=== PATIENT | female | born 1970 | race Caucasian/White ===

== ENCOUNTER 2024-01-10 08:01 | Emergency (ER) | payer BC, SELFPAY ==
--- NOTE | ~2024-01-10 | CT_ITS ---
EXAMINATION: CT ABDOMEN AND PELVIS WITHOUT CONTRAST CLINICAL INFORMATION: Right flank pain COMPARISON: None available. TECHNIQUE: Multidetector volumetric imaging was performed from the superior aspect of the liver through the pubic symphysis. Sagittal and coronal reformatted images were obtained on the technologist's workstation. This CT examination was performed using dose optimization techniques as appropriate, variously including the following: *Automated exposure control *Adjustment of mA and/or kV according to patient size (this includes techniques or standardized protocols for targeted exams where dose is matched to indication/reason for exam; i.e. extremities or head) *Use of iterative reconstruction technique DLP: 719 mGy-cm FINDINGS: LUNG BASES: There is minimal atelectatic changes right middle lobe. The heart size is normal. LIVER, GALLBLADDER, AND BILIARY TREE: The liver is normal in size, shape, and attenuation. No focal hepatic lesion or biliary ductal dilatation is present. The gallbladder is unremarkable with no evidence of radiopaque gallstones, gallbladder wall thickening, or obvious pericholecystic inflammatory changes. PANCREAS: Unremarkable. SPLEEN: Unremarkable. ADRENAL GLANDS: Unremarkable. KIDNEYS AND URETERS: The kidneys are normal in size, shape, and attenuation. No hydronephrosis, hydroureter, or calculi seen. No perinephric stranding. BLADDER: There is a 2 mm dependent radiopaque calculi likely from recently passed kidney stone. GASTROINTESTINAL TRACT: There is scattered stool, diverticuli and gas seen throughout the colon without significant distention. The small bowel loops are normal caliber. Appendix is normal caliber. There is no free air or free fluid. ABDOMINAL WALL: No significant hernia is appreciated. LYMPH NODES: Normal. VASCULAR: Unremarkable. PELVIC VISCERA: The uterus is retroverted and appears unremarkable. There is no adnexal mass or free fluid. OSSEOUS STRUCTURES: Mild degenerative disc changes with vacuum disc phenomena and spondylosis is noted at the L5-S1 disc level. CT/CT abdomen pelvis wo IV con IMPRESSION: 1. 2 mm dependent radiopaque calculi in the urinary bladder likely from recently passed kidney stone. There is no hydroureteronephrosis. No renal calculi seen 2. Scattered colonic diverticulosis without diverticulitis. Mild constipation. Fleischner guidelines were followed.
[2024-01-10 08:15] VITALS: BP 137/77; PULSE 68; RESP 14; TEMP 36.7; O2SAT 95; BMI 34.5
[2024-01-10 08:30] VITALS: BP 149/81; PULSE 74; RESP 16; TEMP 36.4; O2SAT 97
[2024-01-10 08:57] LABS: MANUAL DIFF FLAG NO
[2024-01-10] MEDS: Ketorolac Tromethamine 15 MG/ML VIAL IVPUSH (08:58)
--- NOTE | 2024-01-10 08:58 | ED.FEMALEGU ---
HPI - Female Genitourinary General Chief complaint: Urogenital-Female Stated complaint: ? Kidney Stones Time Seen by Provider: 01/10/24 08:36 Source: patient and family Mode of arrival: ambulatory Limitations: no limitations History of Present Illness HPI Narrative: 53 yo female with no PMH and no surgeries started with intermittent feelings of urination this AM. Woke up to urinate in the middle of the night which is unusual for her. She then woke up this AM and felt she had to urinate but could not. She then developed R low back pain and episodes of intense nausea. Her back pain was so bad she could barely dress herself. She has never had renal colic before but thinks her mom has kidney stones. MD elicited complaint: dysuria and flank pain Onset (ago): hour(s) (1) Location of symptoms: low back and flank Severity: moderate Quality of pain: sharp Consistency: intermittent Vaginal discharge: none Vaginal bleeding: none Urinary symptoms: Dysuria, Frequency, Difficulty Urinating and Flank Pain Exacerbating factors: urination Relieving factors: none Associated symptoms: nausea Related Data Allergies Allergy/AdvReac Type Severity Reaction Status Date / Time diazepam [From Valium] AdvReac Nausea Verified 01/10/24 08:15 Review of Systems Review of Systems: Constitutional : No Fever, No Chills ENT/Mouth : No sore throat Eyes: No Eye Pain, No Swelling, No Redness Cardiovascular : No Chest Pain, No SOB Respiratory : No Cough, No Sputum, No Wheezing Gastrointestinal : positive Nausea, no Vomiting, No Diarrhea, positive abdominal pain Genitourinary : positive Dysuria, positive urinary frequency, no Hematuria, positive Flank Pain, positive hesitancy Musculoskeletal : No joint pain, No Myalgias Skin : No Skin Lesions, No rash Neuro : No Weakness, No Numbness, No Headache Psych : No Anxiety/Panic, No Depression Heme/Lymph: No Bruising, No Lymphadenopathy Endocrine : No Polyuria, No Polydipsia All other systems reviewed and are negative [facility] Past Medical History Attestation statement: The following information was validated with the patient. Medical History No pertinent past medical history Social History Social History (Updated 01/10/24 @ 09:46 by Ely Christiansen DO) Patient Tobacco Use Status: Never used Tobacco Smoked in Last 30 Days: No Advance Directives: No Advance Directives Information Provided: Yes Patient : Yes Physical Exam Vital Signs: Vital Signs: Last Vital Signs Temp 98.1 F 01/10/24 10:43 Pulse 64 01/10/24 10:43 Resp 14 01/10/24 10:43 BP 136/75 01/10/24 10:43 Pulse Ox 97 01/10/24 10:43 O2 Del Method Room Air 01/10/24 10:43 BMI result Body Mass Index 34.5 Appearance: Alert. Oriented X3. No acute distress. Eyes: Pupils equal, round and reactive to light. ENT: Pharynx normal. Neck: Normal inspection. Neck supple. CVS: Normal heart rate and rhythm. Pulses normal. Respiratory: No respiratory distress. Breath sounds normal. Abdomen: Soft and nontender. Back: mild R low back and CVA ttp Skin: Skin warm and dry. Normal skin color. Normal skin turgor. Extremities: No lower extremity edema. No calf ttp Neuro: Oriented X 3. No motor deficit. No sensory deficit. Medications Administered Discontinued Medications Generic Name Dose Route Start Last Admin Trade Name Freq PRN Reason Stop Dose Admin Sodium Chloride 1,000 mls @ 999 mls/hr 01/10/24 08:45 01/10/24 11:01 Ns IV 01/10/24 09:45 Infused .Q1H1M MITCHELL Infusion Ketorolac Tromethamine 15 mg 01/10/24 08:41 01/10/24 08:58 Ketorolac Tromethamine 15 Mg/Ml Vial IVPUSH 01/10/24 08:42 15 mg ONCE ONE Administration Ondansetron HCl 4 mg 01/10/24 08:41 01/10/24 08:59 Ondansetron Hcl 4 Mg/2 Ml Vial IVPUSH 01/10/24 08:42 4 mg ONCE ONE Administration Medical Decision Making Medical Decision Making [facility] Narrative: 53 YO female with no sig PMH here with R flank and back pain with urinary symptoms and nausea at this time will need basic labs, UA, CT scan for renal colic. IVF and IV toradol for pain ordered. Differential Diagnosis Differential Diagnoses: The differential diagnosis associated with the presentation includes renal colic, appendicitis less likely, pyelonephritis, back spasm Admission/Observation Consideration of admission/observation: Escalation of care including admission/observation considered passed stone pain resolved tolerating PO Lab Data [facility] Lab Attestation statement: I reviewed the patient's lab results. 01/10/24 08:52 01/10/24 08:52 Labs: Lab Results 01/10/24 01/10/24 Range/Units 08:52 10:57 WBC 6.4 (4.8-10.8) X10*3/uL RBC 4.30 (4.20-5.50) X10*6/uL Hgb 12.8 (12.0-16.0) g/dl Hct 38.0 (37.0-47.0) % MCV 88.4 (80.0-98.0) fL MCH 29.8 (27.0-33.0) pg MCHC 33.7 (31.0-35.0) g/dl RDW 12.3 (11.0-16.0) % Plt Count 206 (160-400) X10*3/uL MPV 10.4 (9.4-12.3) fL Immature Gran % (Auto) 0.6 H (0.0-0.4) % Neut % (Auto) 70.4 (45-73) % Lymph % (Auto) 20.7 (20-40) % [place] % (Auto) 5.4 (2-11) % Eos % (Auto) 2.3 (0-4) % Baso % (Auto) 0.6 (0-2) % Lymph # (Auto) 1.3 (1.2-4.9) X10*3/uL [place] # (Auto) 0.4 (0.1-1.2) X10*3/uL Eos # (Auto) 0.2 (0.0-0.4) X10*3/uL Baso # (Auto) 0.0 (0.0-0.2) X10*3/uL Abs Immat Gran (auto) 0.04 H (0.00-0.03) X10*3/uL Absolute Neuts (auto) 4.5 (2.0-8.3) x10*3/uL Absolute Nucleated RBC 0.000 (0.0-0.012) X10*3/uL Nucleated RBC % (auto) 0.0 (0.0-0.2) /100WBC Sodium 140 (135-145) mmol/L Potassium 4.2 (3.3-5.1) mmol/L Chloride 106 (96-108) mmol/L Carbon Dioxide 27 (22-29) mmol/L Anion Gap 11 L (12-20) BUN 14 (9-16) mg/dL Creatinine 0.70 (0.5-1.4) mg/dL Estim Creat Clear Calc 101.6 Estimated GFR > 60 Random Glucose 293 H (60-115) mg/dL Calcium 8.8 (8.4-10.2) mg/dL Magnesium 2.0 (1.6-2.6) mg/dL Total Bilirubin 0.5 (0.0-1.0) mg/dL Direct Bilirubin 0.2 (0.0-0.5) mg/dL AST 26 (5-31) U/L ALT 32 H (0-31) U/L Alkaline Phosphatase 86 (39-117) U/L Total Protein 6.7 (6.5-8.0) g/dL Albumin 4.0 (3.5-5.0) g/dL Urine Color Yellow Urine Appearance Clear Urine pH 6.0 (5.0-9.0) Ur Specific Hume 1.020 (1.005-1.025) Urine Protein Negative (Neg-Trace) mg/dL Urine Glucose (UA) >=1000 H (Negative) mg/dL Urine Ketones Trace (Negative) mg/dL Urine Blood Small (1+) H (Negative) Urine Nitrite Negative (Negative) Ur Leukocyte Esterase Negative (Negative) Independent Interpretation I performed an independent interpretation of an: CT Scan (stone in bladder) Radiology Impression Discussion of test interpretation with radiology: I have reviewed the radiologist's reading. Independent Historian Clinical information obtained from an independent historian. History obtained from or confirmed by: Spouse Prescription Management I considered prescription management with: Other Discharge Plan Discharge Clinical Impression: Renal colic on right side Patient Disposition: Home, Self-Care Instructions: Renal Colic (ED) Additional Instructions: STONE IS IN THE BLADDER SUSPECT YOU PASSED IT. PLEASE STAY HYDRATED. RETURN FOR FEVERS, VOMITING, INABILITY TO EAT OR DRINK OR ANY OTHER CONCERNS. YOUR BLOOD SUGAR WAS HIGH IN THE 200S PLEASE CALL YOUR PRIMARY CARE DOCTOR TO FURTHER EVALUATION FOR DIABETES. Stand Alone Forms: Work/School Release
[2024-01-10 08:59] LABS: Basophils Percent Auto 0.6 % (0-2); Eosinophils Absolute Auto 0.2 X10*3/uL (0.0-0.4); Eosinophils Percent Auto 2.3 % (0-4); Hemoglobin 12.8 g/dl (12.0-16.0); Imm Gran Abs Auto 0.04 X10*3/uL (0.00-0.03); Imm Gran Pct Auto 0.6 % (0.0-0.4); Lymphocytes Absolute Auto 1.3 X10*3/uL (1.2-4.9); Lymphocytes Percent Auto 20.7 % (20-40); Mean Corpuscular HGB Conc 33.7 g/dl (31.0-35.0); Mean Corpuscular Hemoglobin 29.8 pg (27.0-33.0); Mean Corpuscular Volume 88.4 fL (80.0-98.0); Mean Platelet Volume 10.4 fL (9.4-12.3); Monocytes Absolute Auto 0.4 X10*3/uL (0.1-1.2); Monocytes Percent Auto 5.4 % (2-11); Neutrophils Absolute Auto 4.5 x10*3/uL (2.0-8.3); Neutrophils Percent Auto 70.4 % (45-73); Platelet Count 206 X10*3/uL (160-400); Red Cell Distribution Width 12.3 % (11.0-16.0); White Blood Count 6.4 X10*3/uL (4.8-10.8)
[2024-01-10] MEDS: 0.9 % Sodium Chloride 1,000 ML 999 ML IV (08:59)
[2024-01-10] MEDS: ondansetron HCL 4 MG/2 ML VIAL IVPUSH (08:59)
--- NOTE | 2024-01-10 09:00 | PC.NURSE ---
pt is alert and oriented, skin pwd, respirations even and unlabored, pt reports right sided flank pain that comes and goes and this morning having difficulty urinating, with nausea, pain at this time is 1/10
[2024-01-10 09:14] LABS: Alanine Aminotransferase 32 U/L (0-31); Alkaline Phosphatase 86 U/L (39-117); Anion Gap 11 (12-20); Aspartate Amino Transferase 26 U/L (5-31); Bilirubin Direct 0.2 mg/dL (0.0-0.5); Bilirubin Total 0.5 mg/dL (0.0-1.0); Blood Urea Nitrogen 14 mg/dL (9-16); Calcium 8.8 mg/dL (8.4-10.2); Carbon Dioxide 27 mmol/L (22-29); Chloride 106 mmol/L (96-108); Creatinine Clr Calc Pharmacy 101.6; Estimated Glomerular Filt Rate > 60; Glucose Random 293 mg/dL (60-115); Potassium 4.2 mmol/L (3.3-5.1); Sodium 140 mmol/L (135-145); Total Protein 6.7 g/dL (6.5-8.0)
[2024-01-10 10:43] VITALS: BP 136/75; PULSE 64; RESP 14; TEMP 36.7; O2SAT 97
[2024-01-10 11:04] LABS: Appearance Urine Clear; Color Urine Yellow; Glucose Urine UA >=1000 mg/dL (Negative); Leukocyte Esterase Urine Negative (Negative); Nitrite Urine Negative (Negative); UMIC TRIGGER UACC YES; Urine Blood Small (1+) (Negative); Urine Ketones Trace mg/dL (Negative); Urine Protein Negative (Neg-Trace)
[2024-01-10 11:20] LABS: Bacteria Urine 1+ (None Seen); Hyaline Casts Urine 0-2 /LPF (0-2); RBC Urine 0-2 /HPF (0-2); WBC Urine 0-5 /HPF (0-5)
[2024-01-10 11:42] VITALS: BP 118/77; PULSE 68; RESP 16; TEMP 36.6; O2SAT 96
== END 2024-01-10 11:42 | disposition home or self-care (01) ==
PROVIDERS: Emergency Provider Emergency Medicine; PCP Internal Medicine
DX: N23 Unspecified renal colic (principal); N21.0 Calculus in bladder
CPT/HCPCS: 36415; 74176; 80048; 80076; 81001; 81003; 83735; 85025; 96361; 96374; 96375; 99284; 99285; J1885; J2405

== ENCOUNTER 2024-02-01 14:24 | Outpatient (REF) | payer BC, SELFPAY ==
[2024-02-01 14:36] LABS: MANUAL DIFF FLAG NO
[2024-02-01 15:21] LABS: Basophils Absolute Auto 0.1 X10*3/uL (0.0-0.2); Basophils Percent Auto 0.8 % (0-2); Eosinophils Absolute Auto 0.5 X10*3/uL (0.0-0.4); Eosinophils Percent Auto 5.5 % (0-4); Estimated Average Glucose 203 mg/dL; Hematocrit 42.5 % (37.0-47.0); Hemoglobin 14.2 g/dl (12.0-16.0); Hemoglobin A1c % 8.7 % (<6.0); Imm Gran Abs Auto 0.03 X10*3/uL (0.00-0.03); Imm Gran Pct Auto 0.4 % (0.0-0.4); Lymphocytes Absolute Auto 2.5 X10*3/uL (1.2-4.9); Lymphocytes Percent Auto 29.4 % (20-40); Mean Corpuscular HGB Conc 33.4 g/dl (31.0-35.0); Mean Corpuscular Hemoglobin 29.3 pg (27.0-33.0); Mean Corpuscular Volume 87.8 fL (80.0-98.0); Mean Platelet Volume 10.6 fL (9.4-12.3); Monocytes Absolute Auto 0.5 X10*3/uL (0.1-1.2); Monocytes Percent Auto 6.2 % (2-11); Neutrophils Absolute Auto 4.9 x10*3/uL (2.0-8.3); Neutrophils Percent Auto 57.7 % (45-73); Platelet Count 276 X10*3/uL (160-400); Red Blood Count 4.84 X10*6/uL (4.20-5.50); Red Cell Distribution Width 12.3 % (11.0-16.0); White Blood Count 8.5 X10*3/uL (4.8-10.8)
[2024-02-01 15:53] LABS: Alanine Aminotransferase 39 U/L (0-31); Albumin Level 4.5 g/dL (3.5-5.0); Alkaline Phosphatase 88 U/L (39-117); Anion Gap 16 (12-20); Aspartate Amino Transferase 25 U/L (5-31); Bilirubin Total 0.4 mg/dL (0.0-1.0); Blood Urea Nitrogen 15 mg/dL (9-16); Calcium 10.3 mg/dL (8.4-10.2); Carbon Dioxide 26 mmol/L (22-29); Chloride 104 mmol/L (96-108); Cholesterol 215 mg/dL (<200); Estimated Glomerular Filt Rate > 60; Glucose Random 150 mg/dL (60-115); Potassium 3.9 mmol/L (3.3-5.1); Sodium 142 mmol/L (135-145); Total Protein 7.6 g/dL (6.5-8.0)
[2024-02-01 16:09] LABS: Thyroid Stimulating Hormone 2.63 uIU/mL (0.32-4.0); Vitamin D 25-OH Total 22.2 ng/mL (>30)
[2024-02-01 16:12] LABS: Appearance Urine Cloudy; Color Urine Yellow; Glucose Urine UA Negative (Negative); Leukocyte Esterase Urine Negative (Negative); Nitrite Urine Negative (Negative); Specific Gravity - Urine 1.025 (1.005-1.025); Urine Blood Negative (Negative); Urine Ketones 40 mg/dL (Negative); Urine Protein Negative (Neg-Trace)
[2024-02-01 16:38] LABS: Creatinine Urine 130.19 mg/dL; Microalbum/Creatinine Ratio Ur 13.8 ug/mg cr (<30)
== END 2024-02-01 14:25 | disposition home or self-care (01) ==
LOC: HO.LAB 14:24
PROVIDERS: PCP Internal Medicine; Visit Provider Internal Medicine
DX: E11.9 Type 2 diabetes mellitus without complications (principal); E55.9 Vitamin D deficiency, unspecified; J45.909 Unspecified asthma, uncomplicated; Z87.442 Personal history of urinary calculi
CPT/HCPCS: 36415; 80053; 81003; 82043; 82306; 82465; 82570; 83036; 84443; 85025

== ENCOUNTER 2024-03-01 08:11 | Outpatient (REF) | payer BC, SELFPAY ==
--- NOTE | ~2024-03-01 | MM_ITS ---
EXAMINATION: BONE DENSITOMETRY CLINICAL INDICATION: Menopause. COMPARISON: This is the patient's baseline examination. TECHNIQUE: Using a [employer] DXA System (software version: 13.1) manufactured by [employer], dual-energy x-ray absorptiometry was performed of the lumbar spine and left hip. The images are of good technical quality. Summary results are attached. FINDINGS: LEFT FEMUR, NECK: BMD 0.998 g/cm2, Z-score 0.3, T-score -0.3, normal. LEFT FEMUR, TOTAL: BMD 1.081 g/cm2, Z-score 0.8, T-score 0.6, normal. AP SPINE L1-L4: BMD 1.341 g/cm2, Z-score 1.5, T-score 1.3, normal. IDENTIFIED RISK FACTORS: Menopause. HISTORY OF FRACTURE: None listed. MEDICATIONS: None listed. MM/XR DEXA axial skeleton IMPRESSION: 1. DIAGNOSIS: Normal bone density based on the lowest T-score value of -0.3 in the femoral neck applying World Health Organization criteria. 2. 10-YEAR FRACTURE RISK PREDICTION, FRAX: According to the guidelines, FRAX calculation should only be performed on patients in the osteopenia bone density category. Therefore, FRAX was not performed on this patient. 3. Treatment Recommendations: NOF guidelines recommend consideration for treatment in postmenopausal women and men age 50 and older presenting with the following: -A hip or vertebral (clinical or morphometric) fracture. -T-score less than or equal to -2.5 at the femoral neck or spine after appropriate evaluation to exclude secondary causes. -Low bone mass at the hip or spine and a 10-year fracture probability by FRAX of greater than or equal to 3% for hip fracture or greater than or equal to 20% for major osteoporotic fracture based on the [place] adapted WHO algorithm. 4. Other Recommendations: All treatment decisions require clinical judgment and consideration of individual patient factors, including patient preferences, comorbidities, previous drug use, risk factors not captured in the FRAX model (e.g. frailty, falls, vitamin D deficiency, increased bone turnover, interval significant decline in bone density) and possible under or overestimation of fracture risk by FRAX. FUTURE SCAN RECOMMENDATION: People with diagnosed cases of osteoporosis or at high risk for fracture should have regular bone mineral density tests. For patients eligible for Medicare, routine testing is allowed once every 2 years. The testing frequency can be increased to one year for patients who have rapidly progressing disease, those who are receiving or discontinuing medical therapy to restore bone mass, or have additional risk factors.
--- NOTE | ~2024-03-01 | MM_ITS ---
EXAMINATION: MM SCREENING DIGITAL BREAST TOMOSYNTHESIS, BILATERAL CLINICAL INFORMATION: Screening. Asymptomatic. COMPARISON: Mammography: This institution,, there have been no mammograms on this patient in over 10 years. TECHNIQUE: Digital breast tomosynthesis is performed in both the craniocaudal and mediolateral oblique views along with computer-aided detection (CAD). Synthesized 2D images are generated from the tomosynthesis. FINDINGS: The breasts are almost entirely fatty (ACR BI-RADS breast composition Category a). There are no significant masses, abnormal calcifications, or other abnormalities. MM/MM tomosynthesis screening BI IMPRESSION: No mammographic evidence of malignancy. ASSESSMENT: BI-RADS BI-RADS 1 - Negative RECOMMENDATION: Routine annual mammography screening. 1 year F/U This examination should not preclude the clinical evaluation of a suspicious palpable abnormality. This patient's information was entered into a reminder system with a target due date for their next mammogram.
== END 2024-03-01 08:12 | disposition home or self-care (01) ==
LOC: HO.MAMMO 08:11
PROVIDERS: PCP Internal Medicine; Visit Provider Internal Medicine
DX: Z12.31 Encounter for screening mammogram for malignant neoplasm of breast (principal); Z13.820 Encounter for screening for osteoporosis; Z78.0 Asymptomatic menopausal state
CPT/HCPCS: 77063; 77067; 77080

== ENCOUNTER → 2024-03-01 08:45 | Outpatient (BNV) | payer BC, SELFPAY | PROVIDERS: PCP Internal Medicine; Visit Provider Radiology Diagnostic Radiology | DX: Z12.31 Encounter for screening mammogram for malignant neoplasm of breast (principal) | CPT/HCPCS: 77063; 77067 ==

== ENCOUNTER 2025-05-19 15:44 | Outpatient (REF) | payer BC, SELFPAY | END 2025-05-19 15:45 | disposition home or self-care (01) | LOC: HO.MAMMO 15:44 | PROVIDERS: PCP Internal Medicine; Visit Provider Obstetrics & Gynecology | DX: Z12.31 Encounter for screening mammogram for malignant neoplasm of breast (principal) | CPT/HCPCS: 77063; 77067 ==

== ENCOUNTER → 2025-05-19 16:30 | Outpatient (BNV) | payer BC, SELFPAY | PROVIDERS: PCP Internal Medicine; Visit Provider Internal Medicine | DX: Z12.31 Encounter for screening mammogram for malignant neoplasm of breast (principal) | CPT/HCPCS: 77063; 77067 ==

== ENCOUNTER 2025-06-25 11:16 | Outpatient (REF) | payer BC, SELFPAY ==
--- NOTE | ~2025-06-25 | US_ITS ---
EXAMINATION: MM DIAGNOSTIC DIGITAL BREAST TOMOSYNTHESIS, RIGHT Limited right breast ultrasound. CLINICAL INFORMATION: Call back from screening for focal asymmetry in the upper central breast middle to posterior depth with questioned architectural distortion. Family history of breast cancer including 2 maternal aunts in their 50s. COMPARISON: Mammography: [facility] on PACS. TECHNIQUE: Digital breast tomosynthesis is performed in both the craniocaudal and mediolateral oblique views along with computer-aided detection (CAD). Synthesized 2D images are generated from the tomosynthesis. FINDINGS: There are scattered areas of fibroglandular density (ACR BI-RADS breast composition Category b). Focal asymmetry in the upper central breast middle to posterior depth persists on additional imaging projections with questioned architectural distortion. No suspicious calcifications or other abnormal findings. Targeted color Doppler ultrasound scanning from 10 2:00 demonstrates normal fibroglandular breast tissue. There is no sonographic abnormal findings. US/US breast RT limited mamm only IMPRESSION: Focal asymmetry upper central breast middle to posterior depth with questioned associated distortion without sonographic correlate. Recommend stereotactic core needle biopsy at this time for confirmation. The findings and recommendations were discussed with the patient the procedure will be scheduled. ASSESSMENT: BI-RADS BI-RADS 4 - Suspicious finding RECOMMENDATION: Biopsy recommended Results were provided to the patient at time of visit by the technologist. This patient's information was entered into a reminder system with a target due date for their next mammogram. Electronically signed by: Valerie Moseley DO 06/25/2025 12:39 PM EDT
--- OUTSIDE RECORDS SUMMARY | 2025-06-25 12:15 | XMS_ITS | Clinical Summary ---
Author Organization [facility] Address [address] [place] [phone] Phone Care Team Providers Care Office Support Assistant Name Role Phone Fabien Graham MD Primary Care Provider Allergies Active Allergy Reactions Criticality Noted Date Comments Diazepam Nausea and/or Vomiting 07/01/2019 Medications FREESTYLE SONG 3 SENSOR Mesha Inject 1 Application under the skin 2 (two) times a week. 5 Active albuterol 90 mcg/actuation inhaler Inhale 2 puffs into the lungs every 6 (six) hours as needed for wheezing. Active FREESTYLE SONG 3 PLUS SENSOR DeviIndication s:Type 2 diabetes mellitus without complication, without long-term current use of insulin 1 Application by Miscellaneous route 2 (two) times a week. 1 each 24 5 Active Active Problems Problem Noted Date Diagnosed Date Type 2 diabetes mellitus wit hout complication, without long-term current use of insulin 02/17/2025 Assessment & Plan (02/17/2025 10:14 AM EDT): 54 yo woman w/ hx GDM diagnosed with Type 2 diabetes last year. She has no known complications from diabetes. She has lost weight, is following a carb-restricted diet & appears to have excellent control based on CGM download. Will do labs today. Discussed dx, natural hx/progressive nature of disease & routine monitoring. Discussed role of diet/exercise/weight loss to maintain control & slow down progression. To continue to work on eating healthy/maintaining healthy weight, would agree w/ increase in activity as she is planning & would monitor. Would advise she have an HbA1c every 6 months assuming self monitoring continues to indicate good control, along with annual eye exams, umalb/creat & foot exams. She can follow up w/ PCP, but I am available as needed should things change. Weight loss Assessment & Plan (02/17/2025 10:10 AM EDT): Will include TFTs w/ labs. Family History Medical History Relation Comments Hypertension Brother Prediabetes Brother Ovarian cancer Maternal Aunt Diabetes Mother Heart failure Mother Kidney disease Mother Macular degeneration Mother Relation Status Comments Brother Alive Father Alive Maternal Aunt Maternal Grandfather Maternal Grandmother Mother Paternal Grandfather Paternal Grandmother Social History Tobacco Use Types Packs/Day Years Used Date Smoking Tobacco: Never Smokeless Tobacco: Never Alcohol Use Standard Drinks/Week Comments Yes 1 (1 standard drink = 0.6 oz pur e alcohol) Education Answer Date Recorded Are you interested in more education? Not on cricket e 11/01/2024 Are you concerned about learning? Not on file 11/01/2024 No 11/01/2024 No 11/01/2024 Digital Access Answer Date Recorded No 11/01/2024 No 11/01/2024 Reliable internet access at home? Not on file 11/01/2024 Device with a working camera? Not on file Comments Unknown Sex and Gender Information Value Date Recorded Sex Assigned at Not on file Legal Sex Female 9:02 AM EDT Gender Identity Not on file Sexual Orientation Not on file Last Filed Vital Signs Vital Sign Reading Time Taken Comments Blood Pressure 120/70 02/17/2025 9:01 AM EDT Pulse 67 02/17/2025 9:01 AM EDT Temperature 36.7 C (98 F) 07/01/2019 9:18 AM EDT Respiratory Rate 19 07/01/2019 9:18 AM EDT Oxygen Saturation 98% 02/17/2025 9:01 AM EDT Inhaled Oxygen Concentration - - Weight 70.3 kg (155 lb) 02/17/2025 9:01 AM EDT Height 163.3 cm (5' 4.29 ) 02/17/2025 9:01 AM E DT Body Mass Index 26.37 02/17/2025 9:01 AM EDT Plan of Treatment Health Maintenance Due Date Last Done Comments Adult Td,Tdap Booster 1970 DEPRESSION SCREENING 1982 HEPATITIS C SCREENING 1988 HIV ONE-TIME SCREENING (18-6 5 YEARS) 1988 PNEUMOCOCCAL VACCINES (50+ y ears) (1 of 2 - PCV) 1989 PAP SMEAR 1991 MAMMOGRAM 2010 COLOGUARD 2015 COLONOSCOPY 2015 COLORECTAL CANCER SCREENING 2015 FIT TEST 2015 FOBT 2015 SIGMOIDOSCOPY 2015 VIRTUAL COLONOSCOPY 2015 ZOSTER VACCINES (1 of 2) 2020 COVID-19 VACCINE (1 - 2023-2 5 season) 2024 DIABETIC EYE EXAM 02/17/2025 BLOOD PRESSURE 08/19/2025 02/17/2025 HEMOGLOBIN A1C 08/19/2025 02/17/2025 LIPID PANEL 02/17/2026 02/17/2025 URINE MICROALBUMIN/CREATININ E RATIO 02/17/2026 02/17/2025 SMOKING STATUS SCREENING (On ce After 26 Yrs) Completed 02/17/2025 HEPATITIS A VACCINES Aged Out No long er eligible based on patient's age to complete this topic HIB VACCINES Aged Out No longer eligi ble based on patient's age to complete this topic MENINGOCOCCAL VACCINES (ACWY) Aged Out No longer eligible based on patient's age to complete this topic MENINGOCOCCAL VACCINES (B) Aged Out N o longer eligible based on patient's age to complete this topic Medical Devices Not on file Procedures Procedure Name Priority Date/Time Associated Diagnosis Comments MICROALBUMIN/CREATIN INE RATIO, RANDOM URINE Routine 02/17/2025 11:04 AM EDT Type 2 diabetes mellitus without complication, without long-term current use of insulin HEMOGLOBIN A1C Routine 02/17/2025 10:36 AM EDT Type 2 diabetes mellitus without complication, without long-term current use of insulin LIPID PANEL Routine 02/17/2025 10:36 AM EDT Type 2 diabetes mellitus without complication, without long-term current use of insulin from Last 3 Months or Most Recently Relevant to Health Maintenance Results * Microalbumin/creatinine ratio, random urine (02/17/2025 11:04 AM EDT) URINE MICROALBUMIN <1.2 0 - 2.3 mg/dL [facility] URINE CREATININE 99 mg/dL [facility] MICROALB/CRE RATIO NOT CALCULATED 0 - 20 mg/g Cre [facility] Comment:due to Microalbumin <1.2 Urine (Urine) 02/17/2025 11: 04 AM EDT 02/17/2025 11:09 AM EDT us Liyah Bee MD URINE ORDERABLES Final Result [address] [address] * (ABNORMAL) Hemoglobin A1c (02/17/2025 10:36 AM EDT) HEMOGLOBIN A1C 6.1(H) 4.3 - 5.8 % [facility] Blood 02/17/2025 10:3 6 AM EDT 02/17/2025 10:38 AM EDT us Liyah Bee MD LAB BLOOD ORDERABLES F inal Result Performing Organization Address City/[facility]/ZIP Co de Phone Number [address] [phone] * (ABNORMAL) Lipid panel (02/17/2025 10:36 AM EDT) HDL 78 mg/dL [facility] Comment: Interpretation <40 mg/dL: Low HDL cholesterol (major risk factor for CHD) Greater than or equal to 60 mg/dL: High HDL cholesterol ( negative risk factor for CHD) HDL - cholesterol is affected by a number of factors, e.g. smoking, excerise, hormones, sex and age. CHOLESTEROL 261(H) 0 - 240 mg/dL [facility] TRIGLYCERIDES 60 30 - 160 mg/dL [facility] LDL 171(H) 50 - 129 mg/dL [facility] Comment: LDL levels in terms of risk for coronary heart disease: <100 mg/dL: Optimal 100-129 mg/dL: Near or above optimal 130-159 mg/dL: Borderline high 160-189 mg/dL: High >190 mg/dL: Very High CARDIAC RISK RATIO 3.3 3.3 - 4.4 C [facility] Blood 02/17/2025 10:3 6 AM EDT 02/17/2025 10:38 AM EDT us Liyah Bee MD LAB BLOOD ORDERABLES F inal Result [facility] [address] [place] [address] from Last 3 Months or Most Recently Relevant to Health Maintenance Insurance [facility] OUT OF STATE PPO Conduit OUT OF STATE PPO BLUE CROSS OUT OF STATE PPO BLUE CROSS OUT OF STATE PPO BLUE CROSS OUT OF STATE PPO BLUE CROSS OUT OF STATE PPO BLUE CROSS OUT OF STATE PPO BLUE CROSS OUT OF STATE PPO BLUE CROSS OUT OF STATE PPO Care Teams Office Support Assistant Relationship Specialty Start Date End Date Fabien Graham MD [address] [place] [address] [place] [address] PCP - General Internal Medicine 07/01/19 Additional Source Comments The information contained in this document represents components of the legal health record. It is not the complete legal health record.[facility]
== END 2025-06-25 11:17 | disposition home or self-care (01) ==
LOC: HO.MAMMO 11:16
PROVIDERS: Visit Provider Obstetrics & Gynecology
DX: N64.89 Other specified disorders of breast (principal)
CPT/HCPCS: 76642; 77061; 77065

== ENCOUNTER → 2025-06-25 11:30 | Outpatient (BNV) | payer BC, SELFPAY | PROVIDERS: Visit Provider Internal Medicine | DX: R92.8 Other abnormal and inconclusive findings on diagnostic imaging of breast (principal) | CPT/HCPCS: 76642; 77061; 77065 ==

== ENCOUNTER 2025-07-15 08:23 | Outpatient (AMB) | payer BC, SELFPAY ==
--- NOTE | 2025-07-15 08:38 | A.OFFVIS_ITS ---
Vital Signs 07/15/25 08:42 Height 5 ft 4 in Weight 165 lb BMI 28.3 BP 134/81 Blood Pressure Location Rt brachial Position Sitting Pulse 74 Intake Visit Reasons: sterotatic breast Intake Note: Patient is seen in office for biopsy CONSULT right breast 12 o'clock asymmetry. Pt c/o: does not feel lump on breast. Denies tenderness, nipple discharge. Maternal aunt w/ hx of breast CA. Bx: TODAY @ 9am Thoracic Medicine Specialist Required: No Allergies diazepam (From Valium) Adverse Reaction (Verified 07/15/25 08:40) Nausea Medication List - Last Reconciled 07/15/25 by Bishnu Almodovar MD No Known Home Meds HPI Comments Details: 54-year-old female patient presenting with a recent screening mammogram dated 05/19/2025 with follow-up images dated 06/25/2025 including an ultrasound which revealed a suspicious area of architectural distortion noted in the right breast mid depth in the upper breast, with no correlate on ultrasound. This was felt to be suspicious for malignancy and a stereotactic guided core biopsy scheduled for later today at the [facility]. She denies a previous history of breast surgery but has had previous problems with breast cysts. Her family history is significant for a maternal aunt with breast cancer and 2 maternal aunts with ovarian cancer. Her menarche at the age of 10. She is in her 1st child was born when she was 30 years old. Her last menstrual period was approximately 10 years ago (44 years old). She denies hormone replacement therapy. She denies Ashkenazi Restorationism heritage. She denies any current breast symptoms including breast pain, nipple discharge, skin changes, or palpable masses. [facility] Medical History Diabetes type 2 Seasonal allergies Asthma No pertinent past medical history Family History Maternal Aunt Breast cancer Ovarian cancer Maternal Aunt Ovarian cancer Social History Patient Tobacco Use Status: Never used Tobacco Review of Systems Const All systems reviewed & are unremarkable except as noted in HPI and below Physical Exam Vital Signs: Last Vital Signs Pulse 74 07/15/25 08:42 BP 134/81 07/15/25 08:42 BMI result Body Mass Index 28.3 Const General: cooperative and no acute distress Nutritional Appearance: well nourished Orientation/consciousness: patient oriented x3 Limitations: no limitations HEENT Head: Yes normocephalic and Yes atraumatic Ears: hearing grossly normal bilaterally Chest Other: Left breast: No skin change, no nipple retraction, no nipple discharge, no palpable mass, no enlarged lymph nodes. Right breast: No skin change, no nipple retraction, no nipple discharge, no palpable mass, no enlarged lymph nodes Resp Effort & Inspection: normal respiratory effort, no audible wheezes, no cough and no respiratory distress Cardio Jugular venous distension: no JVD GI Inspection: Yes normal to inspection Skin Other: Warm, dry, no rash Neuro General: patient oriented x3 Extrem General: Yes no clubbing, cyanosis or edema Assessment & Plan Assessment & Plan (1) Abnormal mammogram of right breast: Code(s): R92.8 - Other abnormal and inconclusive findings on diagnostic imaging of breast Category: Medical Plan 54-year-old female patient presenting with a screening mammogram which revealed an abnormal architectural distortion in the mid right breast upper portion felt to be suspicious for malignancy. She denies a previous history of breast problems or breast surgery. Examination revealed no suspicious findings in either breast special attention to the upper portion of the right breast as noted in the mammogram. She is scheduled for a stereotactic guided core biopsy later today at the [facility]. I recommended she return in approximately 1 week for follow-up examination and review of the pathology results. She is welcome to call sooner for any new concerns. Orders: Orders MM stereotactic biopsy RT Today R92.8 - Other abnormal and inconclusive findings on diagnostic imaging of breast Coding Level of Care Code New Pt Level 4 (76075) Diagnoses Abnormal mammogram of right breast R92.8
[2025-07-15 08:42] VITALS: BP 134/81; PULSE 74; BMI 28.3
--- OUTSIDE RECORDS SUMMARY | 2025-07-15 09:01 | XMS_ITS | Clinical Summary ---
Author Organization Formerly [facility] Address [address] [place] [id number] Phone Care Team Providers Care Trains Service Conductor Name Role Phone Fabien Graham MD Primary [...] URINE MICROALBUMIN <1.2 0 - 2.3 mg/dL [facility] URINE CREATININE 99 mg/dL [facility] MICROALB/CRE RATIO NOT CALCULATED 0 - 20 mg/g Cre [facility] Comment:due to Microalbumin <1.2 Urine (Urine) 02/17/2025 11: 04 AM EDT 02/17/2025 11:09 AM EDT us Liyah Bee MD URINE ORDERABLES Final Result [address] [address] * (ABNORMAL) Hemoglobin A1c (02/17/2025 10:36 AM EDT) HEMOGLOBIN A1C 6.1(H) 4.3 - 5.8 % [facility] Blood 02/17/2025 10:3 6 AM EDT 02/17/2025 10:38 AM EDT us Liyah Bee MD LAB BLOOD ORDERABLES F inal Result Performing Organization Address City/[facility]/ZIP Co de Phone Number [address] [address] * (ABNORMAL) Lipid panel (02/17/2025 10:36 AM EDT) HDL 78 mg/dL [facility] Comment: Interpretation <40 mg/dL: Low HDL cholesterol (major risk factor for CHD) Greater than or equal to 60 mg/dL: High HDL cholesterol ( negative risk factor for CHD) HDL - cholesterol is affected by a number of factors, e.g. smoking, excerise, hormones, sex and age. CHOLESTEROL 261(H) 0 - 240 mg/dL [facility] TRIGLYCERIDES 60 30 - 160 mg/dL [facility] LDL 171(H) 50 - 129 mg/dL [facility] Comment: LDL levels in terms of risk for coronary heart disease: <100 mg/dL: Optimal 100-129 mg/dL: Near or above optimal 130-159 mg/dL: Borderline high 160-189 mg/dL: High >190 mg/dL: Very High CARDIAC RISK RATIO 3.3 3.3 - 4.4 [facility] Blood 02/17/2025 10:3 6 AM EDT 02/17/2025 10:38 AM EDT us Liyah Bee MD LAB BLOOD ORDERABLES F inal Result [facility] [address] [place] [address] from Last 3 Months or Most Recently Relevant to Health Maintenance Insurance [facility] OUT OF STATE PPO [employer] OUT OF STATE PPO BLUE CROSS OUT OF STATE PPO BLUE CROSS OUT OF STATE PPO BLUE CROSS OUT OF STATE PPO BLUE CROSS OUT OF STATE PPO BLUE CROSS OUT OF STATE PPO BLUE CROSS OUT OF STATE PPO BL[employer] OUT OF STATE PPO Care Teams Trains Service Conductor Relationship Specialty Start Date End Date Fabien Graham MD [address] [place] [address] [place] [address] PCP - General Internal Medicine 07/01/19 Additional Source Comments The information contained in this document represents components of the legal health record. It is not the complete legal health record.[facility]
== END 2025-07-15 08:57 | disposition home or self-care (01) ==
LOC: HO.HGS 08:24
PROVIDERS: PCP Obstetrics & Gynecology; Visit Provider Surgery
DX: R92.8 Other abnormal and inconclusive findings on diagnostic imaging of breast (principal)
CPT/HCPCS: 99204

== ENCOUNTER 2025-07-15 09:00 | Outpatient (REF) | payer BC, SELFPAY ==
--- NOTE | ~2025-07-15 | MM_ITS ---
EXAMINATION/PROCEDURE: 1. STEREOTACTIC TOMOSYNTHESIS-GUIDED VACUUM-ASSISTED BREAST BIOPSY, RIGHT 2. POST PROCEDURE DIGITAL MAMMOGRAM, RIGHT CLINICAL INFORMATION: Patient is status post right diagnostic mammogram/ultrasound workup on June 25, 2025 for right breast focal asymmetry in the upper central breast middle to posterior depth with a questioned associated distortion, without sonographic correlate. COMPARISON: Bilateral screening mammogram on May 19, 2025. Right diagnostic mammogram/ultrasound workup on June 25, 2025. TECHNIQUE/PROCEDURE: Informed consent was obtained from the patient after discussion of the benefits, risks, and alternatives to biopsy today. Patient appeared to understand. Gave opportunity for questions. Patient signed consent form. BIOPSY TABLE: [employer] Affirm Prone Biopsy System. LESION: Right breast focal asymmetry in the upper central breast middle to posterior depth. LOCAL ANESTHESIA: 17 cc of lidocaine 1% buffered with Sodium Bicarbonate 8.4% (9cc: 1cc) DERMATOTOMY: Single skin jenelle dermatotomy performed. NEEDLE: Eviva 9-gauge vacuum assisted core biopsy device. APPROACH: Superior. TARGETING: Digital breast tomosynthesis used for targeting. CORES: 6. CLIP: [employer] for Eviva mini cork shape SPECIMEN RADIOGRAPH: Specimen radiograph was not obtained. POST PROCEDURE UNILATERAL DIGITAL MAMMOGRAM: The post biopsy mammogram is performed in separate room using separate digital mammography equipment from the biopsy procedure. ML 90 degrees, MLO and CC views with tomosynthesis are obtained. The mini cork clip marker is in satisfactory position. There is a small local hematoma. The patient tolerated the procedure well. No immediate complications. Home instructions reviewed with the patient. Final pathology results are pending. MM/MM stereotactic biopsy RT IMPRESSION: 1. Digital tomosynthesis-guided core biopsy right breast focal asymmetry with questioned associated distortion in the upper central breast with mini cork clip placement. 2. There is satisfactory positioning of the biopsy clip. 3. Final pathology results pending. An addendum report will be issued. ASSESSMENT: Post procedure - Marker Placement Electronically signed by: Ca Jensen MD 07/15/2025 12:31 PM EDT
[2025-07-15] MEDS: Lidocaine HCl 1 % 20 ML VIAL 16 ML SUBCUT (10:15)
== END 2025-07-15 09:01 | disposition home or self-care (01) ==
LOC: HO.MAMMO 09:00
PROVIDERS: Visit Provider Surgery
DX: Z12.31 Encounter for screening mammogram for malignant neoplasm of breast (principal); R92.8 Other abnormal and inconclusive findings on diagnostic imaging of breast
CPT/HCPCS: 19081; 88305; A4648; J2003

== ENCOUNTER → 2025-07-15 09:00 | Outpatient (BNV) | payer BC, SELFPAY | PROVIDERS: Visit Provider Radiology Body Imaging | DX: R92.8 Other abnormal and inconclusive findings on diagnostic imaging of breast (principal) | CPT/HCPCS: 19081; 77065 ==

== ENCOUNTER 2025-07-21 12:55 | Outpatient (AMB) | payer BC, SELFPAY ==
--- NOTE | 2025-07-21 13:07 | MHC.OFFVIS ---
Vital Signs 07/21/25 13:16 Height 5 ft 4 in Weight 161 lb 4 oz BMI 27.7 BP 122/67 Blood Pressure Location Lt brachial Position Sitting Pulse 70 Intake Visit Reasons: 1WK sterotatic breast Intake Note: Patient is seen in office for biopsy RESULTS right breast 12 o'clock asymmetry. 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 This was felt to be suspicious for malignancy and a stereotactic guided core biopsy scheduled for later today at the [facility]. She denies a previous history of breast surgery but has had previous problems with breast cysts. Her family history is significant for a maternal aunt with breast cancer and 2 maternal aunts with ovarian cancer. Her menarche at the age of 10. She is in her 1st child was born when she was 30 years old. Her last menstrual period was approximately 10 years ago (44 years old). She denies hormone replacement therapy. She denies Ashkenazi Sabianism heritage. She denies any current breast symptoms including breast pain, nipple discharge, skin changes, or palpable masses. She underwent a stereotactic guided core biopsy on 07/15/2025. Pathology reveals breast tissue with prominent fatty component, focal stromal fibrosis and focal apocrine metaplasia; no atypia or malignancy is identified. A six-month follow-up diagnostic mammogram of the right breast was recommended. [facility] Medical History Diabetes type 2 Seasonal allergies Asthma No pertinent past medical history Family History Maternal Aunt Breast cancer Ovarian cancer Maternal Aunt Ovarian cancer Social History Patient Tobacco Use Status: Never used Tobacco Review of Systems Const All systems reviewed & are unremarkable except as noted in HPI and below Physical Exam Vital Signs: Last Vital Signs Pulse 70 07/21/25 13:16 BP 122/67 07/21/25 13:16 BMI result Body Mass Index 27.7 Const General: cooperative and no acute distress Nutritional Appearance: well nourished Orientation/consciousness: patient oriented x3 Limitations: no limitations HEENT Head: Yes normocephalic and Yes atraumatic Ears: hearing grossly normal bilaterally Chest Other: Biopsy site is clean, dry and intact without redness or discharge. Resp Effort & Inspection: normal respiratory effort, no audible wheezes, no cough and no respiratory distress Cardio Jugular venous distension: no JVD GI Inspection: Yes normal to inspection Skin Other: Warm, dry, no rash Neuro General: patient oriented x3 Extrem General: Yes no clubbing, cyanosis or edema Assessment & Plan Assessment & Plan (1) Abnormal mammogram of right breast: Code(s): R92.8 - Other abnormal and inconclusive findings on diagnostic imaging of breast Category: Medical Plan 54-year-old female patient with an area of asymmetry in the right breast status post stereotactic guided core biopsy on 07/15/2025. Pathology revealed benign breast tissue with no atypia or malignancy identified. She tolerated the procedure well. A six-month follow-up diagnostic mammogram has been requested. She should follow up as needed. Orders: Orders MM diagnostic mammo unilat RT 6 Months R92.8 - Other abnormal and inconclusive findings on diagnostic imaging of breast Coding Level of Care Code Est Pt Level 3 (94810) Diagnoses Abnormal mammogram of right breast R92.8
[2025-07-21 13:16] VITALS: BP 122/67; PULSE 70; BMI 27.7
--- OUTSIDE RECORDS SUMMARY | 2025-07-21 15:05 | XMS_ITS | Clinical Summary ---
Author Organization [facility] Address [address] [place] [address] Phone Care Team Providers Care Public Address Systems Mechanic Name Role Phone Fabien Graham MD Primary [...] 2015 ZOSTER VACCINES (1 of 2) 2020 DIABETIC EYE EXAM 02/17/2025 INFLUENZA VACCINE (#1) 2025 COVID-19 VACCINE (1 - 2023-2 5 season) 2025 BLOOD PRESSURE 08/19/2025 02/17/2025 HEMOGLOBIN A1C 08/19/2025 [...] URINE MICROALBUMIN <1.2 0 - 2.3 mg/dL [facility] URINE CREATININE 99 mg/dL [facility] MICROALB/CRE RATIO NOT CALCULATED 0 - 20 mg/g Cre [facility] Comment:due to Microalbumin <1.2 Urine (Urine) 02/17/2025 11: 04 AM EDT 02/17/2025 11:09 AM EDT us Liyah Bee MD URINE ORDERABLES Final Result [address] [address] * (ABNORMAL) Hemoglobin A1c (02/17/2025 10:36 AM EDT) HEMOGLOBIN A1C 6.1(H) 4.3 - 5.8 % [facility] Blood 02/17/2025 10:3 6 AM EDT 02/17/2025 10:38 AM EDT us Liyah Bee MD LAB BLOOD ORDERABLES F inal Result [address] [address] * (ABNORMAL) Lipid panel (02/17/2025 10:36 AM EDT) HDL 78 mg/dL [facility] Comment: Interpretation <40 mg/dL: Low HDL cholesterol (major risk factor for CHD) Greater than or equal to 60 mg/dL: High HDL cholesterol ( negative risk factor for CHD) HDL - cholesterol is affected by a number of factors, e.g. smoking, excerise, hormones, sex and age. CHOLESTEROL 261(H) 0 - 240 mg/dL [facility] TRIGLYCERIDES 60 30 - 160 mg/dL [facility] LDL 171(H) 50 - 129 mg/dL [facility] Comment: LDL levels in terms of risk for coronary heart disease: <100 mg/dL: Optimal 100-129 mg/dL: Near or above optimal 130-159 mg/dL: Borderline high 160-189 mg/dL: High >190 mg/dL: Very High CARDIAC RISK RATIO 3.3 3.3 - 4.4 C [facility] Blood 02/17/2025 10:3 6 AM EDT 02/17/2025 10:38 AM EDT us Liyah Bee MD LAB BLOOD ORDERABLES F inal Result [facility] [address] [place] [address] from Last 3 Months or Most Recently Relevant to Health Maintenance Insurance [facility] OUT OF STATE PPO [facility] OUT OF STATE PPO BLUE CROSS OUT OF STATE PPO BLUE CROSS OUT OF STATE PPO [employer] OUT OF STATE PPO BL[employer] OUT OF STATE PPO [employer] OUT OF STATE PPO [employer] OUT OF STATE PPO BLUE CROSS OUT OF STATE PPO Care Teams Public Address Systems Mechanic Relationship Specialty Start Date End Date Fabien Graham MD [address] [place] [address] [place] [address] PCP - General Internal Medicine 07/01/19 Additional Source Comments The information contained in this document represents components of the legal health record. It is not the complete legal health record.[facility]
== END 2025-07-21 13:35 | disposition home or self-care (01) ==
LOC: HO.HGS 12:56
PROVIDERS: Visit Provider Surgery
DX: R92.8 Other abnormal and inconclusive findings on diagnostic imaging of breast (principal)
CPT/HCPCS: 99213

== ENCOUNTER 2025-07-23 16:21 | Outpatient (AMB) | payer BC, SELFPAY ==
--- NOTE | 2025-07-23 16:22 | A.OFFPC_ITS ---
Vital Signs 07/23/25 16:29 Height 5 ft 4 in Weight 73.482 kg BMI 27.8 BP 112/82 Respiration 16 Pulse 61 Pulse Source Pulse Oximeter Temp 97.1 F Temp Source Temporal Artery Scan Pulse Oximetry (%) 98 Oxygen Delivery Method Room Air Intake Visit Reasons: routine- croke pt Electrician Helper Required: No Accompanied by: Self / Same As Patient Allergies diazepam (From Valium) Adverse Reaction (Verified 07/23/25 16:23) Nausea Tobacco use date assessed: 07/23/25 Dental Screening Dental Screen Date: 07/23/25 Did you have a dental visit in the last 12 months?: Yes Did you have a dental problem in the last 6 months where you did not have access to dental care?: No Was dental information given to patient?: No HPI HPI Comments History of Present Illness Details 54-year-old female with history of type 2 diabetes, asthma, hyperlipidemia, abnormal mammogram presenting to the office today for management of chronic conditions and to establish care. Lives with . Works for [employer]. Occasional alcohol use- one drink weekly. No Cigarettes. No illicit drugs or recent marijuana use. She recently lost 40 lb through diet and exercise. She does acknowledge that she could be exercising more but follows a very healthy diet. Type 2 diabetes-A1c has improved to 6.2%, now diet-controlled. She does use CGM with average glucose of 110. Previously had been following with Dr. Hanna at [facility] endocrinology, but has been discharged advised to follow with PCP. Hyperlipidemia-not on statin. Last LDL 171. She has been making dietary changes to lower her cholesterol levels but is asking about any other additional measures that she can make to lower her cholesterol without taking a statin Right breast hematoma/fatty deposit-follows with breast surgery [facility]. Biopsy negative for malignancy Concerns: None Health Maintenance: Last screening colonoscopy 06/2025 with 1 year follow-up advised, no evidence of malignancy. Abnormalities as noted above Has never undergone colonoscopy Eye exam is up-to-date Dental exams up-to-date Wear sunscreen Reviewed past medical, family, social, surgical history ROS: General: No fevers, malaise, unintentional weight loss HEENT: No blurred vision, diplopia. No sore throat, nasal congestion, rhinorrhea, sinus pain, ear pain. No hearing loss Neck - no adenopathy Cardiovascular: No chest pain, palpitations, or leg edema Respiratory: No shortness of breath, wheezing, cough Breast: No pain, palpable lumps, nipple inversion GI: No dysphagia, odynophagia, globus sensation. No abdominal pain, nausea, vomiting, diarrhea, constipation, melena, hematochezia : No dysuria, hematuria, increased urinary frequency, decreased urinary output. 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 No AH/VH. No SI/HI Skin: No rashes or lesions EXAM: Constitutional - Awake and Alert, No apparent distress Eyes - PERRLA, EOMI. Anicteric Ears - external ears normal, canals clear, TMs intact and pearly russ with good cone of light Nose- septum midline, nares clear, no sinus tenderness Mouth/throat- mucosa moist, tongue and uvula midline, no erythema/edema or to nsillar adenopathy. Neck-trachea midline, thyroid symmetric without palpable nodules, no adenopathy Cardiovascular - S1S2, RRR, No edema Respiratory - Normal lung expansion, Normal respiratory effort, No respiratory distress, CTA bilaterally Gastrointestinal - NT / ND; +BS; No rebound or guarding - No CVA tenderness Extremities - no calf tenderness bilaterally, no swelling Musculoskeletal - Normal inspection, normal ROM Skin - Warm/Dry, no concerning lesions Neurological - Alert & oriented x3, CN II-XII in tact, 5/5 strength BUE and BLE, 2+ patellar reflexes, sensation intact Psychological - Appropriate affect PFSH Medical History HLD (hyperlipidemia) Diabetes type 2 Seasonal allergies Asthma No pertinent past medical history Family History Maternal Aunt Breast cancer Ovarian cancer Maternal Aunt Ovarian cancer Social History Housing: House Patient Tobacco Use Status: Never used Tobacco e-Cigarette/Vaping Use: Never Used service: No Current occupational status: employed Cognitive needs: No Hearing needs: No Vision needs: Yes (Rx glasses) Physical exam (Primary Care) Vital Signs: Last Vital Signs Temp 97.1 F 07/23/25 16:29 Pulse 61 07/23/25 16:29 Resp 16 07/23/25 16:29 BP 112/82 07/23/25 16:29 Pulse Ox 98 07/23/25 16:29 Oxygen Delivery Method Room Air 07/23/25 16:29 BMI result Body Mass Index 27.8 Tobacco/Smoking Status: Tobacco use Status Tobacco use date assessed 07/23/25 07/23/25 16:31 Patient Tobacco Use Status Never used Tobacco 07/23/25 16:23 e-Cigarette/Vaping Use Never Used 07/23/25 16:31 Coding Level of Care Code Est Pt Level 4 (28088) New Pt Prev Care 40-64y(36806) Diagnoses Routine medical exam Z00.00 HLD (hyperlipidemia) E78.5 Diabetes type 2 E11.9 Assessment & Plan Assessment & Plan (1) Routine medical exam: Code(s): Z00.00 - Encounter for general adult medical examination without abnormal findings Plan: 54-year-old female presenting for annual exam and to establish care. Plan as below (2) HLD (hyperlipidemia): Code(s): E78.5 - Hyperlipidemia, unspecified Category: Medical Plan: Uncontrolled. Discussed benefits and risks of statin medication as well as risks of ongoing elevated cholesterol levels especially given comorbid diabetes. She will continue working on diet changes as discussed in the office and will seek out alternative treatments such as supplements with allopathic therapies such as garlic and mushroom bland which to have some evidence in improving cholesterol levels (3) Diabetes type 2: Code(s): E11.9 - Type 2 diabetes mellitus without complications Category: Medical Plan: Controlled. Continue with diabetic diet. We will continue monitoring glucose levels with continue glucose monitor. Continue following with Ophthalmology for annual eye exams. Plan Reviewed labs from [facility]. Labs ordered to be completed prior to next visit Continue with screening mammograms, Pap smears, colonoscopies Continue following for annual skin exams and use sun protection Annual eye exams Wear seat belt in car Recommend regular exercise and healthy diet Follow-up in 3 months with labs completed prior to visit Orders: Orders Basic Metabolic Panel 3 Months E11.9 - Type 2 diabetes mellitus without complications, Z00.00 - Encounter for general adult medical examination without abnormal findings Hemoglobin A1c 3 Months E11.9 - Type 2 diabetes mellitus without complications, Z00.00 - Encounter for general adult medical examination without abnormal findings Lipid Panel 3 Months E11.9 - Type 2 diabetes mellitus without complications, Z00.00 - Encounter for general adult medical examination without abnormal findings Medications: New albuterol sulfate 90 mcg/actuation (Ventolin HFA) 2 puffs inhalation Q6H PRN 8.5 grams 1RF shortness of breath or wheezing fluticasone propionate 50 mcg/actuation (Flonase Allergy Relief) administer into each nostril 1 spray intranasal DAILY 16 grams 2RF
[2025-07-23 16:29] VITALS: BP 112/82; PULSE 61; RESP 16; TEMP 36.2; O2SAT 98; BMI 27.8
--- OUTSIDE RECORDS SUMMARY | 2025-07-23 18:43 | XMS_ITS | Clinical Summary ---
Author Organization [facility] Address [address] [place] [id number] Phone Care Team Providers Care Shock Absorber Installer Name Role Phone Fabien Graham MD Primary [...] URINE MICROALBUMIN <1.2 0 - 2.3 mg/dL [facility] URINE CREATININE 99 mg/dL [facility] MICROALB/CRE RATIO NOT CALCULATED 0 - 20 mg/g Cre [facility] Comment:due to Microalbumin <1.2 Urine (Urine) 02/17/2025 11: 04 AM EDT 02/17/2025 11:09 AM EDT us Liyah Bee MD URINE ORDERABLES Final Result [address] [address] * (ABNORMAL) Hemoglobin A1c (02/17/2025 10:36 AM EDT) HEMOGLOBIN A1C 6.1(H) 4.3 - 5.8 % [facility] Blood 02/17/2025 10:3 6 AM EDT 02/17/2025 10:38 AM EDT us Liyah Bee MD LAB BLOOD ORDERABLES F inal Result [address] [address] * (ABNORMAL) Lipid panel (02/17/2025 10:36 AM EDT) HDL 78 mg/dL [facility] Comment: Interpretation <40 mg/dL: Low HDL cholesterol (major risk factor for CHD) Greater than or equal to 60 mg/dL: High HDL cholesterol ( negative risk factor for CHD) HDL - cholesterol is affected by a number of factors, e.g. smoking, excerise, hormones, sex and age. CHOLESTEROL 261(H) 0 - 240 mg/dL [facility] TRIGLYCERIDES 60 30 - 160 mg/dL [facility] LDL 171(H) 50 - 129 mg/dL [facility] Comment: LDL levels in terms of risk for coronary heart disease: <100 mg/dL: Optimal 100-129 mg/dL: Near or above optimal 130-159 mg/dL: Borderline high 160-189 mg/dL: High >190 mg/dL: Very High CARDIAC RISK RATIO 3.3 3.3 - 4.4 [facility] Blood 02/17/2025 10:3 6 AM EDT 02/17/2025 10:38 AM EDT us Liyah Bee MD LAB BLOOD ORDERABLES F inal Result [facility] [address] [place] [address] from Last 3 Months or Most Recently Relevant to Health Maintenance Insurance [facility] [employer] PPO [facility] [employer] OUT [employer] PPO [employer] PPO [employer]PO [employer] PPO [employer] OUT OF STATE PPO [employer] OUT [employer] STATE PPO [employer] OUT OF [employer] PPO Care Teams Shock Absorber Installer Relationship Specialty Start Date End Date Fabien Graham MD [address] [place] [address] [place] [address] PCP - General Internal Medicine 07/01/19 Additional Source Comments The information contained in this document represents components of the legal health record. It is not the complete legal health record.[facility]
== END 2025-07-23 17:14 | disposition home or self-care (01) ==
LOC: HO.HMCHD 16:21
PROVIDERS: Visit Provider Physician Assistant
DX: Z00.00 Encounter for general adult medical examination without abnormal findings (principal); E78.5 Hyperlipidemia, unspecified; E11.69 Type 2 diabetes mellitus with other specified complication